=== PATIENT | female | born 1965 | race Caucasian/White ===

== ENCOUNTER 2020-11-08 14:15 | Emergency (ER) | payer OTHER, SELFPAY | END 2020-11-08 14:22 | disposition left against medical advice (07) | PROVIDERS: Emergency Provider Nurse Practitioner Family; PCP Physician Assistant | DX: Z53.21 Procedure and treatment not carried out due to patient leaving prior to being seen by health care provider (principal) | CPT/HCPCS: 99199 ==

== ENCOUNTER 2021-10-22 12:47 | Outpatient (CLI) | payer OTHER, SELFPAY | END 2021-10-22 12:48 | disposition home or self-care (01) | LOC: ANHAUDIO 12:48 | PROVIDERS: PCP Physician Assistant; Visit Provider Otolaryngology | DX: H90.3 Sensorineural hearing loss, bilateral (principal) | CPT/HCPCS: 92557; 92567 ==

== ENCOUNTER 2022-02-07 10:49 | Outpatient (RCR) | payer OTHER, SELFPAY | END 2022-02-07 23:59 | disposition home or self-care (01) | LOC: ANHAUDIO 10:49 | PROVIDERS: PCP Physician Assistant; Visit Provider Physician Assistant | DX: Z46.1 Encounter for fitting and adjustment of hearing aid (principal) | CPT/HCPCS: V5160; V5261 ==